=== PATIENT | male | born 1970 | race Asian ===

== ENCOUNTER 2024-10-26 13:43 | Emergency (ER) | payer MEDICAID, OTHER ==
[~2024-10-26] VITALS: Ht 157.5 cm; Wt 65.0 kg
[~2024-10-26 13:43] MED LIST: ATROPINE SULFATE 1MG/10ML SYR ONE; ETOMIDATE 2MG/ML 10ML VIAL IV ONE
[2024-10-26 13:46] VITALS: O2SAT 97
[2024-10-26] MEDS: NOREPINEPHRINE 8MG/250ML PMX 250 ML IV ONE ×2 (14:00→16:12)
[2024-10-26 14:10] VITALS: PULSE 137; RESP 23
[2024-10-26] MEDS ORDERED: KETAMINE HCL 100 MG in SODIUM CHLORIDE 0.9% 98 ML IV ONE (14:15)
[2024-10-26] MEDS: ETOMIDATE 2MG/ML 10ML VIAL IV ONE (14:15)
[2024-10-26] MEDS: ROCURONIUM BROMIDE 10MG/ML VIAL 5ML IV ONE (14:15)
[2024-10-26] MEDS ORDERED: TENECTEPLASE 50MG/VIAL IV ONE (14:30)
[2024-10-26] MEDS: AMIODARONE 150MG/100ML D5W 100 ML IV ONE (14:44)
[2024-10-26] MEDS: ACETAMINOPHEN 1000MG/100ML 100 ML IV ONE (14:45)
[2024-10-26] MEDS ORDERED: CLINDAMYCIN 600 MG in DEXTROSE 5% WATER 50 ML IV ONE (14:45)
[2024-10-26] MEDS: TENECTEPLASE 50MG/VIAL (FOR MI OR PE) IV ONE (14:49)
[2024-10-26 14:50] VITALS: PULSE 130; RESP 20
[2024-10-26] MEDS: CLINDAMYCIN 600MG PREMIX 50 ML IV NR (15:00)
[2024-10-26] MEDS: AZITHROMYCIN 500MG/250ML 250 ML IV ONE (15:00)
[2024-10-26] MEDS ORDERED: EPINEPHRINE 0.1MG/ML (1:10,000) 10ML SYR ONE (15:01)
[2024-10-26] MEDS: KETAMINE HCL 100 MG in SODIUM CHLORIDE 0.9% 100 ML IV PRN (15:07)
[2024-10-26] MEDS ORDERED: VASOPRESSIN 20 UNIT in SODIUM CHLORIDE 0.9% 99 ML IV STA (15:09)
[2024-10-26] MEDS: SODIUM CHLORIDE 0.9% (SEPSIS BOLUS) IV ONE (15:13)
[2024-10-26] MEDS: CEFTRIAXONE 1GM/50ML 50 ML IV ONE (15:20)
[2024-10-26] MEDS ORDERED: VASOPRESSIN 20 UNIT in SODIUM CHLORIDE 0.9% 99 ML IV PRN (15:30)
[2024-10-26] MEDS ORDERED: EPINEPHRINE 10 MG in SODIUM CHLORIDE 0.9% 240 ML IV STA (15:39)
[2024-10-26 15:46] VITALS: TEMP 38.3
[2024-10-26 15:50] VITALS: BP 113/69; PULSE 132; RESP 14; O2SAT 97
[2024-10-26 15:53] LABS: BASOPHILS % 0.2 % (0.0-2.0); EOSINOPHILS % 0.2 % (0.0-5.0); HEMOGLOBIN. 8.9 g/dL (14.0-18.0); LYMPHOCYTES % 14.6 % (20.0-50.0); MEAN CORPUSCULAR HEMOGLOBIN 24.1 pg (28.0-32.0); MEAN CORPUSCULAR HGB CONC 27.9 g/dL (31.0-37.0); MEAN CORPUSCULAR VOLUME 86.1 fL (80.0-94.0); MEAN PLATELET VOLUME 7.8 fl (7.4-10.4); MONOCYTES % 3.5 % (2.0-8.0); NEUTROPHILS % 81.5 % (40.0-76.0); PLATELET 258 x1000/uL (130-400); RED BLOOD CELL COUNT 3.72 mill/uL (4.7-6.1); RED CELL DISTRIBUTION WIDTH 19.9 % (11.6-14.6); WHITE BLOOD COUNT 16.6 x1000/uL (4.5-11.0)
[2024-10-26 15:55] LABS: CHLORIDE 105 mEq/L (98-107); POTASSIUM 5.2 mEq/L (3.5-5.1); SODIUM 140 mEq/L (136-145)
[2024-10-26 15:56] LABS: CARBON DIOXIDE 13 mEq/L (21-32)
[2024-10-26 15:57] LABS: CALCIUM 8.3 mg/dL (8.7-10.4)
[2024-10-26 15:59] LABS: INR 2.3; PARTIAL THROMBOPLASTIN TIME 69.1 sec (23.4-31.0); PROTHROMBIN TIME 22.5 sec (9.6-11.0)
[2024-10-26 16:01] LABS: CREATININE 2.3 mg/dL (0.6-1.3); GLUCOSE 80 mg/dL (70-105); UREA NITROGEN BLOOD 29 mg/dL (9-23)
[2024-10-26 16:05] LABS: DIFFERENTIAL COMMENT 1; TROPONIN I HIGH SENSITIVITY 1117 ng/L (3.0-53)
[2024-10-26] MEDS ORDERED: IOHEXOL-350 100 ML BOTTLE ONE (16:06)
[2024-10-26] MEDS ORDERED: EPINEPHRINE 10 MG in SODIUM CHLORIDE 0.9% 240 ML IV PRN (16:15)
[2024-10-26] MEDS ORDERED: HEPARIN 5000 UNITS/ML VIAL IV PRN ×2 (16:15)
[2024-10-26] MEDS ORDERED: HEPARIN 25,000 UNITS PREMIX 250 ML IV PRN (16:15)
[2024-10-26] MEDS ORDERED: HEPARIN 5000 UNITS/ML VIAL IV SCH (16:15)
[2024-10-26] MEDS ORDERED: NOREPINEPHRINE 8MG/250ML PMX 250 ML IV PRN (16:15)
[2024-10-26] MEDS ORDERED: SODIUM BICARBONATE 8.4% 50MEQ/50ML SYR IV ONE (16:43)
== END 2024-10-26 16:47 ==
LOC: ER 13:43 → EDBEDREQ 15:44 → EDBEDREQTM 15:44 → ER 16:47
DX: R65.21 Severe sepsis with septic shock (principal); A41.9 Sepsis, unspecified organism; J96.91 Respiratory failure, unspecified with hypoxia; I10 Essential (primary) hypertension; I24.89 Other forms of acute ischemic heart disease; I46.9 Cardiac arrest, cause unspecified; J45.909 Unspecified asthma, uncomplicated; Z46.82 Encounter for fitting and adjustment of non-vascular catheter; Z20.822 Contact with and (suspected) exposure to COVID-19
CPT/HCPCS: 80048; 82962; 83880; 83605; 83735; 85025; 85610; 85730; 86850; 86900; 86901; 87040; 84484; 36415; 84145; 71045; 71275; 93005; 31500; 36556; 96368; 92950; 92960; 96365; 99152; 99291; 87426; Q9967; J0282; J0461; J0456; J3490 ×10; J0696; J2310; J3101; J7050 ×2; J7030; 94070; J7060; J0131